=== PATIENT | female | born 1960 | race Caucasian/White ===

== ENCOUNTER 2021-11-27 09:30 | Emergency (ER) | payer MEDICAID ==
[~2021-11-27] VITALS: Ht 152.4 cm; Wt 49.4 kg
[~2021-11-27 09:30] MED LIST: AMBIEN 5 MG TABL5 M1 PO; COZAAR100 MG PO; CRESTOR10 MG PO; CYMBALTA60 MG PO; HYDROCHLOROTHIA25 M2 PO; METOPROLOL SUC100 MG PO; MIRALAX17 GM PO; NEXIUM20 MG PO; NORVASC10 MG PO; PRILOSEC40 MG PO; VICODIN 5-3001 EACH PO
[2021-11-27] MEDS ORDERED: ALPRAZOLAM XR3 MG PO (09:43)
[2021-11-27] MEDS ORDERED: CELEBREX50 MG PO (09:43)
[2021-11-27] MEDS ORDERED: NORCO5 PO ×2 (10:51→10:54)
[2021-11-27 11:05] VITALS: BP 129/74
== END 2021-11-27 11:05 | disposition home or self-care (01) ==
LOC: M.ERS 09:30
DX: S22.32XD Fracture of one rib, left side, subsequent encounter for fracture with routine healing (principal); Z76.0 Encounter for issue of repeat prescription; I10 Essential (primary) hypertension; F17.210 Nicotine dependence, cigarettes, uncomplicated; Z95.0 Presence of cardiac pacemaker; Z98.51 Tubal ligation status; Z98.890 Other specified postprocedural states; Z86.16 Personal history of COVID-19; Z79.899 Other long term (current) drug therapy; W22.8XXD Striking against or struck by other objects, subsequent encounter